=== PATIENT | female | born 1985 | race African-American/Black ===

== ENCOUNTER 2018-03-15 18:00 | Emergency (ER) | payer MEDICAID ==
[~2018-03-15] VITALS: Ht 182.9 cm; Wt 118.0 kg
[~2018-03-15 18:00] MED LIST: PNV1TABL76 MT
[2018-03-15] MEDS ORDERED: KETOROLAC 60MG/2ML VIAL IM ONE (20:45)
[2018-03-15 22:41] VITALS: BP 114/75
== END 2018-03-16 01:09 | disposition home or self-care (01) ==
LOC: ER 23:24
DX: M54.5 Low back pain (principal); R03.0 Elevated blood-pressure reading, without diagnosis of hypertension; E66.01 Morbid (severe) obesity due to excess calories; Z68.35 Body mass index [BMI] 35.0-35.9, adult
CPT/HCPCS: 72100; 81025; 96372; 99284; J1885